=== PATIENT | male | born 2000 ===

== ENCOUNTER 2019-10-18 09:23 | Day surgery (SDC) | payer SELFPAY ==
[2019-10-18] MEDS ORDERED: Lidocaine 1% PF 5 ML VIAL ONE (09:51)
[2019-10-18] MEDS ORDERED: Glycopyrrolate 0.2 MG/ML 5 ML SYRINGE ONE (09:51)
[2019-10-18] MEDS ORDERED: Ondansetron PF 4 MG/2 ML Vial ONE (09:51)
[2019-10-18] MEDS ORDERED: Rocuronium Bromide 10 MG/ML (10ML VIAL) ONE (09:51)
[2019-10-18] MEDS ORDERED: Dexamethasone 20 MG/5 ML VIAL ONE (09:51)
[2019-10-18] MEDS ORDERED: EPHEDRINE 25 MG/5 ML SYRINGE ONE (09:51)
[2019-10-18] MEDS ORDERED: PROPOFOL 200 MG/20 ML VIAL ONE (09:51)
[2019-10-18] MEDS ORDERED: Lidocaine 1% w/Epinephrine 1:100K 20 ML VIAL ONE (11:23)
[2019-10-18] MEDS ORDERED: Bupivacaine 0.25% HCL 30 ML VIAL ONE (11:23)
[2019-10-18] MEDS ORDERED: Fentanyl 100 MCG/2 ML VIAL ONE ×2 (11:26→13:03)
[2019-10-18] MEDS ORDERED: Midazolam HCl 2 mg/2 ml Vial ONE (11:26)
[2019-10-18] MEDS ORDERED: Meperidine HCl/PF 25 MG/ML VIAL ONE (12:55)
[2019-10-18] MEDS ORDERED: HYDROcodone/Acetaminophen 5/325 mg Tablet ONE (13:50)
--- NOTE | 2019-10-18 18:02 | HP ---
DATE OF SURGERY: 10/18/2019 CHIEF COMPLAINT: Right lower quadrant pain. HISTORY OF PRESENT ILLNESS: This is a 19-year-old male with history of pain in his right lower quadrant since 8 o'clock last night, described as sharp, 8/10, does not radiate, associated with nausea, no vomiting, associated with subjective fevers without chills. No sick contacts. No upper respiratory symptoms. Never had this pain before. No history of inflammatory bowel disease. MEDICAL HISTORY: Denies. SURGICAL HISTORY: Denies. MEDICATIONS: Taken daily, none. ALLERGIES: PENICILLIN. SOCIAL HISTORY: No smoking or alcohol or other drugs. REVIEW OF SYSTEMS: Ten-system review of systems is otherwise negative unless described above. PHYSICAL EXAMINATION: HEENT: Sclerae anicteric. Oropharynx clear. NECK: No lymphadenopathy. CHEST: Clear. HEART: Regular rate. ABDOMEN: Soft. Tender in the right lower quadrant. No guarding or rebound. No abdominal or inguinal hernias. EXTREMITIES: No ischemia or edema to extremities. IMAGING STUDIES: CT scan shows acute appendicitis. PLAN: Laparoscopic appendectomy. Risks, benefits, and alternatives discussed. He gives consent. We will do this today. Job ID: [id number]
--- NOTE | 2019-10-19 11:36 | OP ---
DATE OF PROCEDURE: 10/18/2019 PREOPERATIVE DIAGNOSIS: Acute appendicitis. POSTOPERATIVE DIAGNOSIS: Acute appendicitis. PROCEDURE PERFORMED: Laparoscopic appendectomy. ANESTHESIA: General. ESTIMATED BLOOD LOSS: Minimal. COMPLICATIONS: None. SPECIMEN: Appendix. FINDINGS: Appendicitis. DESCRIPTION OF PROCEDURE: The patient was taken to the operating room and laid supine on the operating table. After general anesthetic was obtained, the abdomen was shaved, prepped, and draped in a sterile fashion. A Griggs catheter had been placed. A curved incision was made below the umbilicus. Cautery was used to dissect down to and score the fascia. The abdominal cavity was entered bluntly using a Alina clamp. Holding stitch of PDS was placed on each side of fascia. Rashid trocar was placed. High-flow pneumoperitoneum was obtained. A suprapubic 5-mm port and a left lower quadrant 5-mm port were placed under direct visualization. The cecum was rolled over to reveal acute appendicitis. A window was made at the base of the appendix in the mesoappendix. A laparoscopic stapler was fired across the base of the appendix. A vascular reload was fired across the mesoappendix. The appendix was placed in the EndoCatch bag and brought out through the Rashid. There was no evidence of injury to intraabdominal structures. The right lower quadrant and pelvis were irrigated using sterile solution until returns were clear. No bleeding along the staple lines. All port sites were infiltrated using local anesthetic. All ports were removed under camera visualization. Pneumoperitoneum was let down. PDS was used to close the fascial defect below the umbilicus. All incisions were irrigated and closed using 4-0 Monocryl and Dermabond. The patient was sent to Recovery in stable condition. All instrument counts, needle counts, lap counts were correct. Job ID: [id number]
== END 2019-10-18 14:30 | disposition home or self-care (01) ==
LOC: SDC 09:23
PROVIDERS: ATTEND Surgery
PROC: 0DTJ4ZZ Resection of Appendix, Percutaneous Endoscopic Approach (ICD-10-PCS; principal; 2019-10-18)
DX: K35.80 Unspecified acute appendicitis (principal); Z88.0 Allergy status to penicillin
CPT/HCPCS: 88304; J1100; J2175; J2250; J2405; J2704; J3010; S0020